=== PATIENT | male | born 1950 | race Caucasian/White ===

== ENCOUNTER 2017-04-12 09:26 | Day surgery (SDC) | payer OTHER ==
[2017-04-12] MEDS ORDERED: LR 1,000 ML IV ONE (10:18)
[2017-04-12] MEDS ORDERED: LR 500 ML IV PRN (10:20)
[2017-04-12] MEDS ORDERED: DEXAMETHASONE 4 MG/ML VIAL IVP PRN (10:20)
[2017-04-12] MEDS ORDERED: ONDANSETRON 4 MG/2 ML VIAL IVP PRN (10:20)
[2017-04-12] MEDS ORDERED: NALOXONE HCL 0.4 MG/ML INJ IVP PRN (10:20)
[2017-04-12] MEDS ORDERED: METOCLOPRAMIDE 10 MG/2 ML VIAL IVP PRN (10:20)
--- NOTE | 2017-04-12 10:20 | PDANEPAE ---
ANE Past Medical History - Cardiovascular History Hx Hypertension: No Hx Arrhythmias: No Hx Chest Pain: No Hx Coronary Artery / Peripheral Vascular Disease: No Hx CHF / Valvular Disease: No Hx Palpitations: No - Pulmonary History Hx COPD: No Hx Asthma/Reactive Airway Disease: No Hx Recent Upper Respiratory Infection: No Hx Oxygen in Use at Home: No Hx Sleep Apnea: No - Neurologic History Hx Cerebrovascular Accident: No Hx Seizures: No Hx Dementia: No - Endocrine History Hx Diabetes: No - Renal History Hx Renal Disorders: No - Liver History Hx Hepatic Disorders: No - Neurological & Psychiatric Hx Hx Neurological and Psychiatric Disorders: No - Cancer History Hx Cancer: Yes Cancer History Comment: COLON SP CHEMO D/C / - Congenital Disorder History Hx Congenital Disorders: No - GI History Hx Gastrointestinal Disorders: No - Surgical History Prior Surgeries: COLECTOMY-CA ANE Review of Systems - Exercise capacity METS (RN): 6 METS ANE Patient History - Allergies Allergies/Adverse Reactions: No Known Allergies Allergy (Unverified 04/12/17 10:17) - Home Medications Home Medications: NK [No Known Home Meds] 04/12/17 [Last Taken Unknown] - NPO status NPO Since - Liquids (Date): 04/12/17 NPO Since - Liquids (Time): 02:00 NPO Since - Solids (Date): 04/11/17 NPO Since - Solids (Time): 08:45 - Smoking Hx Smoking Status: Never smoked - Family Anes Hx Family Hx Anesthesia Complications: NONE ANE Labs/Vital Signs - Vital Signs Blood Pressure: 111/66 Heart Rate: 55 Respiratory Rate: 20 O2 Sat (%): 96 Height: 175.26 cm Weight: 67.585 kg ANE Physical Exam - Airway Mallampati Score: Class 2 Mouth exam: normal dental/mouth exam - Pulmonary Pulmonary: no respiratory distress, no rales or rhonchi, clear to auscultation - Cardiovascular Cardiovascular: regular rate and rhythym, no murmur, rub, or gallop, pulses symmetric bilaterally - ASA Status ASA Status: II ANE Anesthesia Plan Anesthesia Plan: MAC
[2017-04-12] MEDS ORDERED: PROPOFOL 200 MG/20 ML VIAL ONE ×2 (10:21→10:33)
--- NOTE | 2017-04-12 10:29 | PDGENHP ---
History and Physical - Chief Complaint colon cancer screening - History of Present Illness 66 yr old with hx of colon cancer, s/p resection and chemo. Presents for surveillance endoscopy History Information - Allergies/Home Medication List Allergies/Adverse Reactions: No Known Allergies Allergy (Unverified 04/12/17 10:17) Home Medications: NK [No Known Home Meds] 04/12/17 [Last Taken Unknown] I have personally reviewed and updated: family history, medical history, social history, surgical history - Past Medical History cancer - Surgical History Reports: colectomy - Family History Positive for: cancer Additional family history: polyps - Social History Smoking Status: Never smoked Alcohol Use: None Drug Use: None Review of Systems ROS: 10pt was reviewed & negative except for what was stated in HPI & below Constitutional: Reports: no symptoms EENMT: Reports: no symptoms Cardiac: Reports: no symptoms Respiratory: Reports: no symptoms Gastrointestinal: Reports: no symptoms Genitourinary: Reports: no symptoms Muscolosketal: Reports: no symptoms Skin: Reports: no symptoms Neurological: Reports: no symptoms Hematologic/Lymphatic: Reports: no symptoms Immunologic/Allergy: Reports: no symptoms Physical Exam Temp Pulse Resp BP Pulse Ox 36.6 C 55 L 20 111/66 96 04/12/17 09:59 04/12/17 10:19 04/12/17 10:19 04/12/17 10:19 04/12/17 10:19 Constitutional: no apparent distress Eyes: PERRL Ears, Nose, Mouth, Throat: moist mucous membranes, hearing normal Cardiovascular: regular rate and rhythym Respiratory: no respiratory distress, clear to auscultation Gastrointestinal: normoactive bowel sounds Skin: warm, normal color Neurologic: AAOx3, CN II-XII Intact Assessment & Plan Assessment: hx of colon cancer s/p resection Plan: colonoscopy for surveillance poor tolerance of conscious sedation, so will plan with anesthesia
[2017-04-12] MEDS ORDERED: LIDOCAINE 2% 5 ML SDV ONE (10:33)
--- NOTE | 2017-04-12 10:57 | POSTANESTH ---
Post Anesthetic Evaluation Cardiovascular Status: Normal, Stable Respiratory Status: Normal, Stable Level of Consciousness/Mental Status: Can Participate in Eval Pain Control: Adequate, Prn Tx Ordered Nausea/Vomiting Control: Adequate, Prn Tx Ordered Complications Possibly Related to Anesthesia: None Noted
[2017-04-12 12:18] VITALS: BP 123/79; PULSE 59; RESP 14; O2SAT 97
--- NOTE | 2017-04-12 13:10 | GPN ---
[f rep st] PROCEDURE NOTE DATE OF PROCEDURE: 04/12/2017 PROCEDURE: Colonoscopy. INDICATIONS: Colorectal cancer surveillance in a patient who is status post partial colectomy appro ximately 12 months ago for colon cancer. MEDICATIONS USED: General anesthesia was administered by anesthesia colleagues. This was deemed ne cessary due to the patient's recent poor tolerance of conscious sedation. COMPLICATIONS: None acutely. DESCRIPTION OF PROCEDURE: After informed consent was obtained (from the patient's ), the patien t was placed in the left lateral decubitus position, and the forward viewing colonoscope was advance d through the rectum and to his right-sided surgical anastomosis. Retroflex views in the rectum wer e obtained. FINDINGS: 1. There was a surgical anastomosis in the right colon. This appears to be an end-to-side ileocolo umm anastomosis. The anastomotic area was widely patent. There was mild induration and congestion in the area of the anastomosis. This was biopsied to rule out recurrent/residual malignancy. 2. The remaining colon appeared normal. 3. There were a few diverticula in the sigmoid colon. 4. The sigmoid colon was somewhat tortuous. 5. Retroflexed views revealed small internal hemorrhoids. IMPRESSION AND RECOMMENDATIONS: Overall, no obvious clues to recurrent malignancy or new polyps or cancer. Induration at the anastomotic site could be postoperative, ischemic, etc. Prior to conside ring his next surveillance endoscopic evaluation, we will await the biopsies from today's procedure. If the biopsies are benign, I recommend repeat colonoscopy for surveillance in 3 years. /[id number]/MODL
[2017-04-12 13:41] VITALS: TEMP 97.2
== END 2017-04-12 12:36 | disposition home or self-care (01) ==
LOC: FSGY 09:26
PROVIDERS: ATTEND Internal Medicine Gastroenterology
PROC: 0DBP8ZX Excision of Rectum, Via Natural or Artificial Opening Endoscopic, Diagnostic (ICD-10-PCS; principal; 2017-04-12 11:45)
DX: Z12.11 Encounter for screening for malignant neoplasm of colon (principal); K57.30 Diverticulosis of large intestine without perforation or abscess without bleeding; K64.8 Other hemorrhoids; Z85.038 Personal history of other malignant neoplasm of large intestine; Z90.49 Acquired absence of other specified parts of digestive tract
CPT/HCPCS: J2704